=== PATIENT | male | born 1985 | race American Indian/Alaskan Native ===

== ENCOUNTER 2018-05-27 15:12 | Emergency (ER) | payer SELFPAY ==
[2018-05-27 15:43] VITALS: BP 138/84
--- NOTE | 2018-05-27 20:40 | Emergency Department Report ---
[facility] Chief Complaint: Eye Problems Stated Complaint: EYES RED Time Seen by Provider: 05/27/18 20:32 Severity: moderate Symptoms: Yes Eye Itching, Yes Eye Redness, Yes Eye Pain, Yes Mucous Drainage, Yes Purulent Drainage, No Blurred Vision, No Preceding URI, No H/O Allergic Rhinitis, No Contact Lens Use, No Trauma, No Fever, No Headache Other History: Patient has family contact with conjunctivitis ED Review of Systems ROS: Stated complaint: EYES RED Other details as noted in HPI Constitutional: denies: chills, fever Eyes: eye pain, eye discharge (yellow purulent). denies: vision change ENT: denies: ear pain, throat pain Respiratory: denies: cough, shortness of breath, wheezing Cardiovascular: denies: chest pain, palpitations Endocrine: no symptoms reported Gastrointestinal: denies: abdominal pain, nausea, diarrhea Genitourinary: denies: urgency, dysuria Musculoskeletal: denies: back pain, joint swelling, arthralgia Skin: denies: rash, lesions Neurological: denies: headache, weakness, paresthesias Psychiatric: denies: anxiety, depression Hematological/Lymphatic: denies: easy bleeding, easy bruising ED Past Medical Hx - Past Medical History Previous Medical History?: No - Surgical History Past Surgical History?: No - Social History Smoking Status: Current Some Day Smoker Substance Use Type: Alcohol - Medications Home Medications: Home Medications Medication Instructions Recorded Confirmed Last Taken Type Cyclobenzaprine [Flexeril] 10 mg PO Q8H PRN #21 tablet 02/28/14 Unknown Rx HYDROcodone/APAP 5-325 [[place] 1 each PO Q6HR PRN #16 tablet 02/28/14 Unknown Rx 5-325 mg TAB] Cetirizine HCl [ZyrTEC] 10 mg PO DAILY #30 capsule 05/27/18 Unknown Rx Ibuprofen 800 mg PO TID PRN #30 tablet 05/27/18 Unknown Rx Polymyxin B Sulf/Trimethoprim 2 drop OU Q4H 7 Days #10 ml 05/27/18 Unknown Rx [Polytrim Eye Drops] [facility] Exam - Exam General: Vital signs noted. No distress. Alert and acting appropriately. Eye Exam: Both Injection, Both EOMI, Both Eye Foreign Body, Both Lid Foreign Body, Both Mucous Discharge, Both Purulent Discharge, Both Photophobia, Neither Chemosis, Neither Abnormal Pupil HEENT: No Nasal Congestion, No Pharyngeal Erythema Remainder of HEENT: Normal Lungs: Yes Clear Lung Sounds, Yes Good Air Exchange, No Wheezes, No Stridor, No Cough, No Nasal Flaring, No Retractions, No Use of Accessory Muscles ED Course Vital Signs 05/27/18 15:38 Temperature 98.6 F Pulse Rate 72 Respiratory 16 Rate Blood Pressure 138/84 O2 Sat by Pulse 99 Oximetry ED Medical Decision Making - Medical Decision Making This is bilateral conjunctivitis likely can contracted by family member with conjunctivitis visual acuity is 20/30 bilaterally symptoms of itching or erythema conjunctivitis. Drainage plan Polytrim Zyrtec ibuprofen discuss hygiene patient verbalizes understanding and agreement was signed will follow with PCP [facility] in 2-3 days or return immediately should symptoms worsen Critical care attestation.: If time is entered above; I have spent that time in minutes in the direct care of this critically ill patient, excluding procedure time. ED Disposition Clinical Impression: Conjunctivitis Qualifiers: Conjunctivitis type: acute Acute conjunctivitis type: bacterial Laterality: bilateral Qualified Code(s): H10.33 - Unspecified acute conjunctivitis, bilateral Disposition: DC-01 TO HOME OR SELFCARE Is pt being admited?: No Does the pt Need Aspirin: No Condition: Good Instructions: Conjunctivitis (ED) Prescriptions: Cetirizine HCl [ZyrTEC] 10 mg PO DAILY #30 capsule Ibuprofen 800 mg PO TID PRN #30 tablet PRN Reason: pain Polymyxin B Sulf/Trimethoprim [Polytrim Eye Drops] 2 drop OU Q4H 7 Days #10 ml Referrals: PRIMARY CARE, [Primary Care Provider] - 3-5 Days Forms: Work/School Release Form(ED) Time of Disposition: 20:43
== END 2018-05-27 20:48 | disposition home or self-care (01) ==
LOC: ED 15:12
DX: H10.33 Unspecified acute conjunctivitis, bilateral (principal); Z72.0 Tobacco use; Z79.899 Other long term (current) drug therapy
CPT/HCPCS: 99282